=== PATIENT | female | born 1955 | race Hispanic/Latino ===

== ENCOUNTER 2019-09-24 07:40 | Day surgery (SDC) | payer OTHER ==
[~2019-09-24] VITALS: Ht 149.9 cm; Wt 67.1 kg
[~2019-09-24 07:40] MED LIST: BUPR100T13 PO; DICL75TA5 PO; GLIP10TA19 PO; HYDR12.54 PO; METF-446 PO; OMEP20CA12 PO; PIOG30TA70 PO; SODIUM CHLORIDE 0.9% 1000ML 1,000 ML IV ONE; TRAZ-185 PO
[2019-09-24 08:11] VITALS: BP 143/72
[2019-09-24] MEDS ORDERED: PROPOFOL 10 MG/ML 20ML VIAL IV ONE ×2 (09:42→09:48)
[2019-09-24] MEDS ORDERED: EPHEDRINE SULFATE 50 MG/ML AMPULE ONE (10:02)
[2019-09-24 10:11] VITALS: BP 139/62
[2019-09-24 10:16] VITALS: BP 111/67
[2019-09-24 10:21] VITALS: BP 135/65
[2019-09-24 10:28] VITALS: BP 140/74
== END 2019-09-24 10:40 | disposition home or self-care (01) ==
LOC: DAH 07:40 → ENDO 07:40
PROVIDERS: ATTEND Internal Medicine Gastroenterology
DX: K92.1 Melena (principal); D12.3 Benign neoplasm of transverse colon; K62.1 Rectal polyp; K29.50 Unspecified chronic gastritis without bleeding; K31.89 Other diseases of stomach and duodenum; K21.9 Gastro-esophageal reflux disease without esophagitis; E11.9 Type 2 diabetes mellitus without complications; F41.9 Anxiety disorder, unspecified; K57.30 Diverticulosis of large intestine without perforation or abscess without bleeding; I25.2 Old myocardial infarction; F32.9 Major depressive disorder, single episode, unspecified; Z79.84 Long term (current) use of oral hypoglycemic drugs; Z79.899 Other long term (current) drug therapy; Z90.710 Acquired absence of both cervix and uterus; Z90.49 Acquired absence of other specified parts of digestive tract; Z98.890 Other specified postprocedural states; Z86.010 Personal history of colon polyps; Z87.891 Personal history of nicotine dependence; Z72.89 Other problems related to lifestyle; Z83.3 Family history of diabetes mellitus
CPT/HCPCS: 43239; 45380; 45385; 82948 ×2; 93005; A4215; A4221; A4222; A4223; A4606; A4620; A4663; J2704 ×2; J3490; J7030